=== PATIENT | female | born 1975 | race Caucasian/White ===

== ENCOUNTER 2023-05-04 09:23 | Outpatient (CLI) | payer BC ==
[~2023-05-04 09:23] MED LIST: AMIT50TA15 PO; GEO20I IM; LORA2VIA4 IM; QUET-1 PO
== END 2023-05-04 23:59 | disposition home or self-care (01) ==
LOC: LAB SPEC 09:23
PROVIDERS: ATTEND Surgery
DX: N61.0 Mastitis without abscess (principal)
CPT/HCPCS: 87070

== ENCOUNTER 2024-01-07 08:19 | Emergency (ER) | payer BC, MEDICAID ==
[~2024-01-07] VITALS: Ht 149.9 cm; Wt 69.8 kg
[~2024-01-07 08:19] MED LIST changes: +LORA2VIA31 IM; -LORA2VIA4 IM
[2024-01-07 08:50] VITALS: BP 131/81; PULSE 79; RESP 16; TEMP 98.5; O2SAT 97
[2024-01-07 10:10] LABS: URINE HCG NEGATIVE (NEG)
[2024-01-07 10:12] LABS: BASOPHILS % (AUTO) 0.5 % (0-1); EOSINOPHILS # (AUTO) 0.1 X10'3 (0-0.9); EOSINOPHILS % (AUTO) 1.2 % (0-6); HEMATOCRIT 39.4 % (35.0-45.0); HEMOGLOBIN 13.1 g/dl (12.0-16.0); LYMPHOCYTES # (AUTO) 2.1 X10'3 (1.1-4.8); MEAN CORPUSCULAR HEMOGLOBIN 28.4 PG (27.0-31.0); MEAN CORPUSCULAR HGB CONC 33.2 g/dL (33.0-36.5); MEAN CORPUSCULAR VOLUME 85.5 FL (78-98); MONOCYTES # (AUTO) 0.6 X10'3 (0-0.9); MONOCYTES % (AUTO) 7.1 % (2-12); NEUTROPHILS # (AUTO) 5.2 X10'3 (1.8-7.7); NEUTROPHILS % (AUTO) 65.2 % (42-75); PLATELET COUNT 233 X10'3 (140-440); RED BLOOD COUNT 4.61 X10'6 (4.20-5.60); RED CELL DISTRIBUTION WIDTH 12.8 % (11.5-14.5)
[2024-01-07 10:12] LABS: BILIRUBIN,URINE NEGATIVE (Neg); CLARITY,URINE CLEAR (Clear); COLOR,URINE YELLOW (Yellow); GLUCOSE, URINE NEGATIVE (Neg); KETONES,URINE NEGATIVE (Neg); LEUKOCYTE ESTERASE ,URINE NEGATIVE (Neg); NITRITES, URINE NEGATIVE (Neg); OCCULT BLOOD,URINE NEGATIVE (Neg); PH,URINE 6.5 (4.8-8.0); PROTEIN,URINE NEGATIVE (Neg); UROBILINOGEN,URINE 0.2 E.U/dL (0.2-1.0)
[2024-01-07 10:13] LABS: UA COLLECTION TYPE CLN CATCH MIDSTREAM
[2024-01-07 10:57] LABS: ALANINE AMINOTRANSFERASE 22 U/L (12-78); ALBUMIN 3.9 G/DL (3.4-5.0); ALKALINE PHOSPHATASE 82 IU/L (46-116); ANION GAP 6 (8-16); ASPARTATE AMINO TRANSFERASE 15 U/L (10-37); BILIRUBIN,TOTAL 0.6 MG/DL (0.1-1.0); BLOOD UREA NITROGEN 18 MG/DL (7-18); BUN/CREATININE RATIO 20.5 (10.0-20.0); CALCIUM 9.4 MG/DL (8.5-10.1); CHLORIDE 103 MMOL/L (99-107); CREATININE 0.88 MG/DL (0.40-0.90); GLUCOSE 115 MG/DL (70-104); SODIUM 138 MMOL/L (135-145); TOTAL CARBON DIOXIDE 28.7 MMOL/L (24-32); TOTAL PROTEIN 7.8 G/DL (6.4-8.2); eCRCL 53 ML/MIN; eGFR 69 ML/MIN
[2024-01-07 10:58] LABS: LIPASE 49 U/L (16-77)
[2024-01-07] MEDS ORDERED: cyclobenzaprine 10mg tablet PO ONE (12:00)
[2024-01-07] MEDS ORDERED: BACL10TA PO (12:20)
[2024-01-07] MEDS: baclofen 10mg tablet PO ONE (12:44)
== END 2024-01-07 13:06 | disposition home or self-care (01) ==
LOC: ER 08:19
DX: R10.9 Unspecified abdominal pain (principal); F12.90 Cannabis use, unspecified, uncomplicated; F15.90 Other stimulant use, unspecified, uncomplicated; Z79.1 Long term (current) use of non-steroidal anti-inflammatories (NSAID); Z91.041 Radiographic dye allergy status; Z79.899 Other long term (current) drug therapy; Z90.49 Acquired absence of other specified parts of digestive tract; Z90.710 Acquired absence of both cervix and uterus
CPT/HCPCS: 36415; 76770; 80053; 81003; 81025; 83690; 85025; 99284